=== PATIENT | male | born 1975 | race Caucasian/White ===

== ENCOUNTER 2018-10-27 08:44 | Day surgery (SDC) | payer SELFPAY ==
[~2018-10-27] VITALS: Ht 177.8 cm; Wt 64.3 kg
[~2018-10-27 08:44] MED LIST: NORCO 325 MG-7.1 TAB PO; PRINZIDE 12.5 M1 TA1 PO; TOPROL XL 50MG50 MG PO
[2018-10-27 09:26] VITALS: BP 111/85; PULSE 79; TEMP 97.3
[2018-10-27 11:00] VITALS: BP 106/74; PULSE 67; TEMP 97.9
--- NOTE | 2018-10-27 11:00 | NUR ---
Patient brought back to [facility], ambulated to chair without difficulty. Alert and oriented, denies pain or nausea. Vital signs stable. States he would like sprite and jello. and son at bedside. Call purdy within reach, will continue to monitor.
[2018-10-27 11:15] VITALS: BP 103/80; PULSE 65; TEMP 97.3
--- NOTE | 2018-10-27 11:15 | NUR ---
Patient states he is feeling well, drowsy. Dr. Corbin at bedside speaking with patient and family. Will continue to monitor.
[2018-10-27 11:30] VITALS: BP 97/71; PULSE 64; TEMP 97.4
--- NOTE | 2018-10-27 11:30 | NUR ---
Patient BP slightly lower. IV fluids increased will continue to monitor.
--- NOTE | 2018-10-27 11:50 | NUR ---
Patient states he feels ready to go home at this time. IV removed, tolerated well. Discharge instructions reviewed with patient and . All questions answered. Patient to get dressed at this time.
--- NOTE | 2018-10-27 12:00 | NUR ---
Patient brought down to lobby via wheel chair. To be driven home by patients .
== END 2018-10-27 12:00 | disposition home or self-care (01) ==
LOC: SDCO 08:44
DX: D12.8 Benign neoplasm of rectum (principal); R19.7 Diarrhea, unspecified; Z90.49 Acquired absence of other specified parts of digestive tract; Z87.891 Personal history of nicotine dependence; K29.00 Acute gastritis without bleeding; K62.89 Other specified diseases of anus and rectum
CPT/HCPCS: J1200; J2250; J2405; J3010